=== PATIENT | male | born 1945 | race Caucasian/White ===

== ENCOUNTER 2023-05-19 07:18 | Emergency (ER) | payer MEDICARE, OTHER, SELFPAY ==
[2023-05-19 07:22] VITALS: BP 165/82
--- NOTE | 2023-05-19 08:08 | ED.GENMED ---
History of Present Illness
General
Chief Complaint: Musculo-Skeletal Complaint
Source: patient and spouse
Time Seen by Provider: 05/19/23 07:37
Travel History
Have you had any contact with someone who has COVID-19?: No
Do you have any symptoms of coronavirus? Fever > 100 degrees, chills, cough, shortness of breath, sore throat, loss of taste or smell, muscle aches, or headache?: No
History of Present Illness
History of Present Illness:
78-year-old male with past medical history of atrial fibrillation, hypertension, hyperlipidemia, chronic kidney disease presenting to the emergency department for evaluation of right knee pain that has been going on for an extended period of time,
noting that he had meniscus repair in December with Dr. Jacobo and while the pain improved following the surgery he does note he has had some pain along the medial aspect of the patella since then. He was seen in office in March where he had a
steroid injection performed but states the pain persisted and over the last 2 days has now had difficulty ambulating secondary to the pain prompting him to come to the ER. Patient does have an appointment scheduled with orthopedics within the next
2 weeks, reached out to the office yesterday to try and expedite this appointment but did not hear back from the office. Patient attempted some Tylenol with minimal pain relief. Denies any fevers or infectious symptoms or overlying skin changes.
No new injuries noted to the affected right knee.
Past History
Past History
ED Past Medical History: Arrthythmia, HTN, Hypercholesterolemia, Renal failure and Psychiatric
ED Past Surgical History: Orthopedic and Other
Social History
Tobacco: Non-smoker
Alcohol: Occasional
Drug: None
Personal:
Living: with family
Review of Systems
Review of Systems
All Other Systems: ROS reviewed and negative except as documented in HPI and ROS
Phy Exam
Physical Exam
Physical Exam:
GENERAL: Alert , in no apparent distress
EYE: conjunctiva clear
Head: Normocephalic atraumatic
NECK: Supple,
ENT: mmm.
LUNGS: no acute respiratory distress
NEUROLOGICAL: Alert and oriented
SKIN: Warm and dry, skin intact.
MUSCULOSKELETAL: Right knee: No obvious deformity, erythema, edema, ecchymosis, abrasions or lacerations. There is mild to moderate tenderness along the medial and distal portion of the patella. Range of motion limited secondary to pain. No joint
effusion appreciated. No laxity within the joint. Easily palpable pedal and tibial pulse. Cap refill less than 2 seconds.
PSYCH: Normal and appropriate interaction.
Scores
Heart Failure Risk
Heart Failure Risk Score: Not Applicable
Heart Score for Chest Pain Patients
STEMI patient?: Not applicable
Withdrawal Assessment of Alcohol
Withdrawal Assessment Completed?: Not applicable
Course
Orders/Labs/Results
Orders:
Orders
05/19/23 07:38
CR Knee- Right 4 Or More View* Urgent
Comment:
Reason For Exam: pain, meniscus surgery previously
05/19/23 08:07
Walker [Treatment- Walker] ONCE
Oxycodone/Acetaminophen [Percocet 5/325] 1 tablet PO NOW STA
Vital Signs
Initial and Last Documented VS:
Initial Vital Signs
Temp Pulse Resp BP Pulse Ox
97.4 F 58 18 165/82 97
05/19/23 07:22 05/19/23 07:22 05/19/23 07:22 05/19/23 07:22 05/19/23 07:22
Last Documented Vital Signs
Temp Pulse Resp BP Pulse Ox
97.4 F 60 16 136/74 98
05/19/23 07:22 05/19/23 08:55 05/19/23 08:55 05/19/23 08:55 05/19/23 08:55
MDM/Problems Addressed
Differential Diagnosis Includes:
Osteoarthritis, joint effusion, gout, I do not have concern for septic arthritis given chronicity of the pain as well as lack of physical exam findings, bursitis
MDM/Problems Addressed:
78-year-old male presenting to the emergency department for evaluation of knee pain on the right side since meniscal repair in December, pain gradually worsening, attempted to have a steroid injection with orthopedics in March but this did not
give the patient any relief. At this time I do not suspect any acute emergent pathologies however will obtain an x-ray to evaluate as well as treat patient's pain here with Percocet. Will avoid NSAIDs due to patient being on Coumadin for his A-fib
as well as history of chronic kidney disease. Last INR check was done within the week and patient reports his INR was 3.
*Radiology
Radiology exam reviewed: preliminary read by ED provider (Mild degenerative changes)
*Pulse Oximetry
Patient hypoxic: no
*Critical Care Note
Total Time (30-74mins, 75-104mins- exclusive of procedures): Not Applicable
Data Reviewed
Review of Other/Old Records Reveals: Operative Reports (Based off Dr. Jacobo's operative report patient had noted patellofemoral chondromalacia and it is noted that he may benefit from physical therapy and hyaluronic acid injections in the future)
Patient Management
Escalation/DeEscalation of care consider admission/obs:
While in the emergency department patient received a call from his orthopedic office and has an appointment scheduled for today at 1015. Prescription sent to patient's pharmacy. X-ray results reviewed. He will follow-up today as scheduled.
ED Attending Note
-
Portions of this chart may have been created with voice recognition software.� Occasional wrong word or��sound alike� substitutions may have occurred due to the inherent limitations of voice recognition software.
Discharge Plan
Departure
Patient Disposition: Home (Routine Discharge)
Date of Disposition: 05/19/23
Time of Disposition: 08:42
Patient with high blood pressure during this ER visit?: Yes
Discharge Problem:
Pain in right knee
Instructions: Knee Pain (DC)
Prescriptions:
New
oxycodone-acetaminophen [Percocet] 5-325 mg tablet
1 tab PO Q6HPRN PRN (Reason: pain) Qty: 8 0RF
No Action
allopurinol 100 mg Tablet
100 mg PO DAILY
simvastatin 40 mg Tablet
40 mg PO HS
terazosin 2 mg Capsule
2 mg PO HS
calcitriol 0.5 mcg Capsule
0.5 mcg PO DAILY
warfarin 5 mg Tablet
5 mg PO DAILY
Rx Instructions:
Mon, Wed, Fri
warfarin 5 mg Tablet
5.5 mg PO DAILY
Rx Instructions:
Sun, Tues, Thurs, Sat
flecainide 100 mg Tablet
100 mg PO BID
metoprolol succinate 25 mg Tablet Extended Release 24 Hr
12.5 mg PO DAILY
finasteride 5 mg Tablet
5 mg PO DAILY
escitalopram oxalate 10 mg Tablet
10 mg PO DAILY
multivitamin Tablet
1 tab PO DAILY
loratadine [Claritin] 10 mg Tablet
10 mg PO DAILY
coenzyme Q10 [CoQ-10] 100 mg Capsule
300 mg PO DAILY
cholecalciferol (vitamin D3) [Vitamin D3] 50 mcg (2,000 unit) Tablet
100 mcg PO DAILY
enoxaparin [Lovenox] 120 mg/0.8 mL Syringe
120 mg SC Q12H
Referrals:
Gricelda Kaiser PA [Family Provider] -
Interventions
Interventions:
*Risk Screen - Suicide Last Done: 05/19/23 08:27
*General Assessment Last Done: 05/19/23 08:25
*Neglect/Abuse Screening Last Done: 05/19/23 08:25
ED- Fall Risk Assessment Last Done: 05/19/23 08:28
*ED COVID-19 Vaccine History Last Done: 05/19/23 08:25
*Nursing Disposition Last Done: 05/19/23 08:56
ED-Musculoskeletal Assessment Last Done: 05/19/23 08:27
[2023-05-19] MEDS: PERCOCET 5/325 1 TABLET PO (08:17)
[2023-05-19 08:55] VITALS: BP 136/74
== END 2023-05-19 08:57 | disposition home or self-care (01) ==
LOC: EMR 07:18
PROVIDERS: EMERGENCY PHYSICIAN Emergency Medicine; FAMILY PHYSICIAN Physician Assistant Medical
DX: M25.561 Pain in right knee (principal); I48.91 Unspecified atrial fibrillation; I12.9 Hypertensive chronic kidney disease with stage 1 through stage 4 chronic kidney disease, or unspecified chronic kidney disease; N18.9 Chronic kidney disease, unspecified; E78.00 Pure hypercholesterolemia, unspecified; Z79.01 Long term (current) use of anticoagulants
CPT/HCPCS: 99283; 73564

== ENCOUNTER → 2023-06-30 11:10 | Outpatient (REF) | payer MEDICARE, OTHER, SELFPAY | LOC: RAD 11:10 | PROVIDERS: ATTENDING PHYSICIAN Physician Assistant Medical | DX: M79.89 Other specified soft tissue disorders (principal); M79.604 Pain in right leg | CPT/HCPCS: 93971 ==

== ENCOUNTER 2023-08-28 05:28 | Emergency (ER) | payer MEDICARE, OTHER, SELFPAY ==
[2023-08-28] VITALS (27 sets, daily range): BP systolic 100–158; BP diastolic 63–105
[2023-08-28 05:59] LABS: % Basophils 0.6 % (0-2); % Eosinophils 1.5 % (0-6); % Immature Granulocytes 0.6 % (0-0.5); % Lymphocytes 22.9 % (20.5-51.1); % Monocytes 9.5 % (1.7-9.3); % Neutrophils 64.9 % (42.2-75.2); Absolute Basophils 0.1 10^3/uL (0-0.2); Absolute Eosinophils 0.1 10^3/uL (0-0.7); Absolute Immature Granulocytes 0.1 10^3/uL (0-0.05); Absolute Lymphocytes 2.1 10^3/uL (1.2-3.4); Absolute Monocytes 0.9 10^3/uL (0.1-0.6); Absolute Neutrophils 5.8 10^3/uL (1.4-6.5); Hematocrit 41.5 % (39.0-52.0); Mean Corp Hgb Conc. 33.7 g/dL (33.0-37.0); Mean Corpuscular Hgb 31.7 pg (27.0-31.0); Mean Corpuscular Volume 94.1 fL (80.0-94.0); Mean Platelet Volume 10.4 fL (7.4-10.4); Nucleated Red Blood Cells % 0 % (-); Platelet Count 201 10^3/uL (130-400); Red Blood Cell Count 4.41 10^6/uL (4.70-6.10); Red Cell Dist. Width 14.8 % (11.5-14.5)
--- NOTE | 2023-08-28 06:12 | ED.GENMED ---
History of Present Illness
General
Chief Complaint: Heart Rate Problem
Source: patient
Exam Limitations: none
Time Seen by Provider: 08/28/23 06:03
Travel History
Have you had any contact with someone who has COVID-19?: No
Do you have any symptoms of coronavirus? Fever > 100 degrees, chills, cough, shortness of breath, sore throat, loss of taste or smell, muscle aches, or headache?: No
History of Present Illness
History of Present Illness:
See MDM
Past History
Past History
ED Past Medical History: Arrthythmia, HTN, Hypercholesterolemia, Renal failure and Psychiatric
ED Past Surgical History: Orthopedic and Other
Social History
Tobacco: Non-smoker
Alcohol: Occasional
Drug: None
Personal:
Living: with family
Phy Exam
Physical Exam
Physical Exam:
See MDM
Course
Orders/Labs/Results
Orders:
Orders
08/28/23 05:42
Electrocardiogram (*1) Urgent
Reason for Study: Chest Pain
Cardiac Monitoring- Treatment ONCE
EKG- Treatment ONCE
IV Insert/Care/Rem.- Treatment PRN
08/28/23 05:54
Complete Blood Count/With Diff Urgent
Comprehensive Metabolic Panel Urgent
08/28/23 06:08
PTT Urgent
Prothrombin Time Urgent
Comment: ADD ON
08/28/23 06:11
Add On- LAB Stat
Comments:: pt
Tests Added?: PT
Diltiazem HCl [Cardizem] 20 mg IV NOW STA
08/28/23 07:53
Propofol [Diprivan] 20 ml .ROUTE .STK-MED
08/28/23 08:28
Electrocardiogram (*1) Urgent
Reason for Study: Palpitations
EKG- Treatment ONCE
Abnormal Lab Results
08/28/23 08/28/23
05:54 06:08
RBC 4.41 L 10^6/uL
(4.70-6.10)
MCV 94.1 H fL
(80.0-94.0)
MCH 31.7 H pg
(27.0-31.0)
RDW 14.8 H %
(11.5-14.5)
Abs Immat Gran (auto) 0.1 H 10^3/uL
(0-0.05)
Absolute Monos (auto) 0.9 H 10^3/uL
(0.1-0.6)
Immature Gran % 0.6 H %
(0-0.5)
Monocytes % 9.5 H %
(1.7-9.3)
PT 28.3 H Sec
(11.4-14.6)
APTT 43.3 H Sec
(23.4-35.0)
BUN 35 H mg/dl
(9-20)
Creatinine 1.8 H mg/dL
(0.7-1.3)
Calcium 10.9 H mg/dl
(8.4-10.2)
08/28/23 05:54
08/28/23 05:54
Vital Signs
Initial and Last Documented VS:
Initial Vital Signs
Temp Pulse Resp BP Pulse Ox
97.8 F 120 22 133/100 98
08/28/23 05:31 08/28/23 05:31 08/28/23 05:31 08/28/23 05:31 08/28/23 05:31
Last Documented Vital Signs
Temp Pulse Resp BP Pulse Ox
97.9 F 57 17 114/69 96
08/28/23 08:55 08/28/23 08:55 08/28/23 08:55 08/28/23 08:55 08/28/23 08:55
Procedures
Moderate Sedation
ASA Risk Score: Class II
Chart and allergies reviewed: Yes
Consent for anesthesia obtained: Yes
Time out completed (validating right patient & procedure): Yes
Moderate Sedation Start Time(when first medication is given): 08:12
History of difficult intubation: No
Airway free of obstruction: Yes
Patient has a gag reflex: Yes
Patient is able to open mouth: Yes
Patient has no dentures: Yes
Patient has no loose teeth: Yes
Medication administered by Provider during Moderate Sedation: IV Propofol (mg)
Total dose administered: 150
Time drug administered: :12
Moderate Sedation Procedure End Time: :
Cardioversion
Indication:: Afib
Performed by:: Josh Dsouza DO
Synchronized?: Yes
Energy Used: 150 joules
Number of attempts: 2
Successful?: Yes
Complications: None
ASA Risk Score: Class II
Any reaction or bad outcome to prior sedation/anesthesia?: No history of a reaction
Sedation level to be attained: moderate
Chart and allergies reviewed: Yes
Patient reassessed prior to sedation: Yes
Time out completed at (validating right patient & procedure): 08:07
History of difficult intubation: No
Airway free of obstruction: Yes
Patient has a gag reflex: Yes
Patient is able to open mouth: Yes
Patient has no dentures: Yes
Patient has no loose teeth: Yes
Medication administered by Provider during Moderate Sedation: IV Propofol (mg)
Total dose administered: 150
Time drug administered: :12
Start Time: 08:12
Stop Time: :
MDM/Problems Addressed
Differential Diagnosis Includes:
HPI and MDM Narrative:
78-year-old male presenting with palpitations since 8 PM. Patient has a history of A-fib and is compliant with Coumadin. Patient states his Coumadin level is 3.4. He has been cardioverted before but states he has been in sinus rhythm for several
years. He denies chest pain. Complains of palpitations.
EKG confirms A-fib. Will try IV Cardizem and attempt to chemically cardiovert before consenting for electrical cardioversion
Physical exam
General: Well appearing and non-toxic
HEENT: protecting airway
Neck: appears supple
CV: No evidence of cyanosis. Tachycardic and irregular
Resp: No accessory muscle use
Abd: Non-distended
Extremities: No deformities
Neuro: alert
Psych: Normal affect
Skin: Intact
Problems Addressed including Acute and Chronic Conditions affecting care:
1. A-fib with RVR
Acuity: acute
Prognosis: unstable
Details: Will obtain basic blood work. Patient given IV fluids. Patient given IV Cardizem in attempt to chemically cardiovert
Updates
Patient tolerated moderate sedation and cardioversion well. Patient now in sinus rhythm.
Differential Diagnosis (but not limited to): A-fib, dehydration
Testing considered: Thyroid testing
Drug therapy (if applicable): OTC meds, please see d/c instruction regarding Rx drugs
Amount and/or Complexity of Data Reviewed
Clinical info obtained from: Patient
External data reviewed: N/A
Labs I independently reviewed (but not limited to): INR therapeutic
Radiology: N/A
Pulse Ox: not hypoxic
EKG independently reviewed: A-fib with RVR, left axis, no STEMI
Charge Nurse: A-fib with RVR
Critical Care: N/A
Risk of Complication:
Social Determinants of health: Good social support
Discussed with other providers: N/A
Escalation of Care includes Admit/Obs: After being observed in the Emergency Department, pt stable for discharge.
Occasional wrong word or 'sound a like' substitutions may have occurred due to the inherent limitations of voice recognition software. Read the chart carefully and recognize, using context, where substitutions have occurred.
*Critical Care Note
Total Time (30-74mins, 75-104mins- exclusive of procedures): Not Applicable
ED Attending Note
-
Portions of this chart may have been created with voice recognition software.� Occasional wrong word or��sound alike� substitutions may have occurred due to the inherent limitations of voice recognition software.
Discharge Plan
Departure
Patient Disposition: Home (Routine Discharge)
Date of Disposition: 08/28/23
Time of Disposition: 09:07
Patient with high blood pressure during this ER visit?: No
Discharge Problem:
A-fib
Instructions: Atrial Fibrillation (DC), MODERATE SEDATION ADULT
Prescriptions:
No Action
allopurinol 100 mg Tablet
100 mg PO DAILY
simvastatin 40 mg Tablet
40 mg PO HS
terazosin 2 mg Capsule
2 mg PO HS
calcitriol 0.5 mcg Capsule
0.5 mcg PO DAILY
warfarin 5 mg Tablet
5 mg PO DAILY
Rx Instructions:
Mon, Wed, Fri
warfarin 5 mg Tablet
5.5 mg PO DAILY
Rx Instructions:
Sun, Tues, Thurs, Sat
flecainide 100 mg Tablet
100 mg PO BID
metoprolol succinate 25 mg Tablet Extended Release 24 Hr
12.5 mg PO DAILY
finasteride 5 mg Tablet
5 mg PO DAILY
escitalopram oxalate 10 mg Tablet
10 mg PO DAILY
multivitamin Tablet
1 tab PO DAILY
loratadine [Claritin] 10 mg Tablet
10 mg PO DAILY
coenzyme Q10 [CoQ-10] 100 mg Capsule
300 mg PO DAILY
cholecalciferol (vitamin D3) [Vitamin D3] 50 mcg (2,000 unit) Tablet
100 mcg PO DAILY
enoxaparin [Lovenox] 120 mg/0.8 mL Syringe
120 mg SC Q12H
oxycodone-acetaminophen [Percocet] 5-325 mg tablet
1 tab PO Q6HPRN PRN (Reason: pain) Qty: 8 0RF
Referrals:
Gricelda Kaiser PA [Family Provider] -
Activity Restrictions/Additional Instructions:
Please return for any worsening symptoms.
You may return at any time if you have further concerns.
Please follow up with your doctor at the first available appointment, preferably this week.
Please make an appointment with your director of accounting.
Thank you for choosing [facility].
Interventions
Interventions:
*Risk Screen - Suicide Last Done: 08/28/23 05:31
*General Assessment Last Done: 08/28/23 05:31
*Neglect/Abuse Screening Last Done: 08/28/23 05:31
ED- Fall Risk Assessment Last Done: 08/28/23 05:31
*ED COVID-19 Vaccine History Last Done: 08/28/23 05:31
ED- Cardiac Assessment Last Done: 08/28/23 06:01
ED- Pulmonary Assessment Last Done: 08/28/23 06:01
Discharge Date and Time
Print Language: ITALIAN
[2023-08-28] MEDS: CARDIZEM 20 MG IV (06:15)
[2023-08-28 06:17] LABS: ALT (SGPT) 29 U/L (0-50); AST (SGOT) 39 U/L (17-59); Alkaline Phosphatase 54 U/L (38-126); Blood Urea Nitrogen 35 mg/dl (9-20); Calcium 10.9 mg/dl (8.4-10.2); Carbon Dioxide 27 mmol/L (22-30); Chloride 106 mmol/L (98-107); Glucose 98 mg/dl (70-99); Potassium 4.3 mmol/L (3.5-5.1); Sodium 138 mmol/L (135-145); Total Bilirubin 0.7 mg/dl (0.2-1.3); Total Protein 6.5 g/dl (6.3-8.2); eGFR 38.53
[2023-08-28 06:34] LABS: INR 2.62; PT 28.3 Sec (11.4-14.6)
[2023-08-28 06:35] LABS: APTT 43.3 Sec (23.4-35.0)
== END 2023-08-28 09:35 | disposition home or self-care (01) ==
LOC: EMR 05:28
PROVIDERS: Student in an Organized Health Care Education/Training Program; EMERGENCY PHYSICIAN Student in an Organized Health Care Education/Training Program; FAMILY PHYSICIAN Physician Assistant Medical
DX: I48.91 Unspecified atrial fibrillation (principal); Z79.01 Long term (current) use of anticoagulants; E78.00 Pure hypercholesterolemia, unspecified; I10 Essential (primary) hypertension
CPT/HCPCS: 99284; 96374; 92960; 80053; 85025; 85610; 85730; 93005

== ENCOUNTER 2024-01-15 06:06 | Day surgery (SDC) | payer MEDICARE, OTHER, SELFPAY ==
[2024-01-05 10:25] VITALS: BMI 37.6
[2024-01-15] VITALS (12 sets, daily range): BP systolic 128–154; BP diastolic 68–109; BMI 38.0
[2024-01-15 07:14] LABS: INR 2.27; PT 25.3 Sec (11.4-14.6)
[2024-01-15 09:02] LABS: ACT-LR - POC 377 Seconds (116-155)
[2024-01-15 09:27] LABS: ACT-LR - POC 351 Seconds (116-155)
[2024-01-15 09:48] LABS: ACT-LR - POC > 397 Seconds (116-155)
[2024-01-15 10:20] LABS: ACT-LR - POC 197 Seconds (116-155)
[2024-01-15 11:16] LABS: ACT-LR - POC > 397 Seconds (116-155)
[2024-01-15 11:16] LABS: ACT-LR - POC > 397 Seconds (116-155)
[2024-01-15] MEDS: PROSCAR 5 MG PO (12:02)
--- NOTE | 2024-01-15 13:04 | ITS.CL.ABL ---
Dowel Machine Operator - Ablation
Ablation
Procedure Report:
Primary Manager Of Drilling: Afshin Blackwood MD
Procedure Date: 01/15/2024
Patient History:
Patient is a pleasant 79-year-old male with a past medical history significant for hypertension, hyperlipidemia, history of PE, hyperlipidemia, BPH, CKD 3B, paroxysmal symptomatic atrial fibrillation.
See H&P for complete details.
Indication:
Symptomatic paroxysmal atrial fibrillation
Recurrence despite antiarrhythmic medical therapy
Arrhythmia Specific History:
Prior Medical Therapies for Rate and Rhythm Control:
X Beta-song
[ ] Calcium channel-song
[ ] Amiodarone
[ ] Dronederone
[ ] Sotalol
X Flecainide
[ ] Dofetilide
X Options limited by bradycardia
X Options limited by comorbid renal disease
Prior Procedural Therapies for AF/AFL:
X Cardioversion
[ ] Pulmonary Vein Isolation
[ ] Posterior Wall Isolation
[ ] Additional lines (Specify)
[ ] Surgical Vila-MAZE or PVI (Specify)
Procedure Performed:
X AF ablation procedure (70580) -- includes LA/CS pacing, trans-septal, 3D mapping, + ICE
[ ] +IV drug (20044)
[ ] +Other Arrhythmia (48273)
[ ] +Other AF Line/ablation (96457)
Risks and expected recovery has been explained in detail. Alternative options have been explored, and in a shared-decision making fashion we have decided that this was the most appropriate procedure.
Method
NPO status confirmed. Grounding pad applied. Defibrillator pads applied. Continuous surface ECG, pulse oximetry, and blood pressure were monitored. Procedure was performed under general anesthesia, with anesthesia services.
Both groins were clipped, prepped with Chloraprep, and draped in sterile fashion. Time out was called. Local anesthesia administered with bupivacaine. The right and left femoral veins were accessed for catheter placement, using ultrasound guidance,
micro-puncture needle/wire, and modified seldinger technique. 3 sheaths were placed. The following catheters were used:
[ ] Tacticath SE (D/F Curve) ablation catheter
X Viewflex 9Fr ICE catheter
X Inquiry decapolar 6Fr diagnostic catheter
[ ] CRD Hex 6Fr
[ ] Arctic Front Advance Cryoballoon ([ ]28mm[ ]23mm)
[ ] Achieve Advance mapping catheter ([ ]15mm[ ]20mm)
X FlexCath Contour 10 Fr with PulseSelect PFA Catheter
X Advisor HD Grid Mapping Catheter, SE
[ ] Acuson AcuNav 8 Fr ICE catheter
[ ]Other: [ ]
Intracardiac ultrasound (ICE) was carefully advanced into the right atrium to guide sheath placement over a J-wire, catheter placement, guide trans-septal puncture, identify potential complications, identify anatomic structures and ensure proper
contact between ablation catheter and tissue.
Heparin was given prior to trans-septal puncture. Heparin was given to achieve and maintain a target ACT of 300-400 seconds throughout the procedure.
Trans-septal access was performed under ICE guidance. The trans-septal puncture was performed with a SafeSept wire through a Brockenbrough needle assembly through the steerable sheath. The wire was visualized as it entered the LSPV and system
advanced under ICE guidance and fluoroscopy into the LA. The Brockenbrough needle assembly, SafeSept wire and sheath dilator were removed under negative pressure. LA pressure was measured and recorded.
ICE and 3D mapping was performed to identify relevant cardiac structures. A careful 3D map was created to assess for regions of low-voltage and abnormal electrogram signals using HD grid mapping catheter and PulseSelect catheter. Additional mapping
was performed as outlined below.
Prior to ablation, glycopyrrolate was provided. PulseSelect catheter was advanced over J-wire to the ostium of each vein. Pulmonary vein isolation was performed with ostial and antral lesions in a circumferential manner. Contact was visualized via
EAM, ICE, fluoroscopy, and EGM signals. Following completion of ablation lesions, a post-ablation voltage/activation map was performed in sinus rhythm. Evidence of reconnection was demonstrated in the right superior pulmonary vein. Ablation once
more performed in this area. Mapping in sinus rhythm demonstrated entrance and exit block were confirmed for each vein. During baseline electrophysiology study post procedure, patient was noted to go in atrial fibrillation which was variable and
amorphous with fluctuating cycle length. Sinus rhythm was restored with 200 J synchronized cardioversion. No further evidence of atrial arrhythmia or sustained atrial arrhythmias.
Catheter and sheath were removed from the left atrium and post-ablation intracardiac echo evaluation was consistent with pre-ablation with no changes and no pericardial effusion and there is no left atrial thrombus or left ventricle thrombus seen.
Electrophysiology study was performed. Hemostasis was obtained with Vascade for each sheath and with manual pressure. Protamine was used for reversal.
Estimated Blood Loss
5 mL
Complications
None
Fluoroscopy: 3.7 minutes; 30.72 mGy; DAP 3.60
Baseline Intervals:
Rhythm: SR
VT: 177 ms
QRS: 131 ms
QT: 457 ms
QTc: 440 ms
A-A: 1080 ms
R-R: 1080 ms
Post-Procedure Intervals:
VT: 210 ms
QRS: 136 ms
QT: 507 ms
QTc: 471 ms
A-A: 1160 ms
R-R: 1160 ms
AVWB: 450 ms
AERP: 600/330 ms
Recommendations
- Bedrest with straight-leg precautions as ordered
- Anticipate same day discharge if patient meeting clinical metrics
- Resume home medications as indicated
- Ok to resume anticoagulation tonight if patient and groin sites stable
- PPI daily for 30 days
- Plan for follow-up in office as scheduled. Recommend continuation of flecainide following procedure and likely discontinuation at 3 month ale if remaining in SR.
Larry Elizabeth DO
Clinical Cardiac Breeder Hen Service Technician
cc: Gricelda Kaiser, Afshin Blackwood MD
--- NOTE | 2024-01-15 13:24 | W.PN.UPDATE ---
Update Note
Progress Note Update
Pt seen post PFA. Right groin site with vascade closure, no ht/bleeding, non tender. OOB ambulating, urinating without difficulty. Post EKG NSR 60s w/RBBB as before, no acute changes. Resume warfarin at usual time/dosing schedule. Followup with
[facility] as scheduled. Home today if groin site/tele remain stable.
--- NOTE | 2024-01-15 13:29 | PTCARENOTE ---
ambulated 1 loop around department.
== END 2024-01-15 13:45 | disposition home or self-care (01) ==
LOC: CATH 06:06
PROVIDERS: ATTENDING PHYSICIAN Internal Medicine Cardiovascular Disease; FAMILY PHYSICIAN Physician Assistant Medical; OTHER PHYSICIAN Internal Medicine Cardiovascular Disease
DX: I48.0 Paroxysmal atrial fibrillation (principal); N18.32 Chronic kidney disease, stage 3b; I12.9 Hypertensive chronic kidney disease with stage 1 through stage 4 chronic kidney disease, or unspecified chronic kidney disease; E78.5 Hyperlipidemia, unspecified; N40.0 Benign prostatic hyperplasia without lower urinary tract symptoms; Z86.711 Personal history of pulmonary embolism; Z79.01 Long term (current) use of anticoagulants; Z79.52 Long term (current) use of systemic steroids; Z79.899 Other long term (current) drug therapy
CPT/HCPCS: C1732; C1730; C1733; C1769; C1894; 85347; 85610; 86900; 86901; 93005; 93656; C1760

== ENCOUNTER 2024-01-18 13:50 | Emergency (ER) | payer MEDICARE, OTHER, SELFPAY ==
[2024-01-18 13:53] VITALS: BP 184/98
--- NOTE | 2024-01-18 14:32 | ED.GENMED ---
History of Present Illness
General
Chief Complaint: Abdominal Symptoms
Source: patient
Exam Limitations: none
Time Seen by Provider: 01/18/24 14:20
Nursing documentation reviewed up to this point in time: agreed with
History of Present Illness
History of Present Illness:
79-year-old male with a past medical history of hypertension, hyperlipidemia, atrial fibrillation who presents to the emergency room for constipation. Patient had a cardiac ablation on Thursday; he says since receiving the anesthesia he has had
constipation and has not had a bowel movement since the procedure. He is having some increasing lower abdominal pressure and today was having some difficulty urinating which he suspects is from constipation. He says that he has been taking
Dulcolax 3 times daily since the procedure and yesterday was using Dulcolax suppositories as well without result. He tried Fleet enema unsuccessfully. Came to the ER to be evaluated. He denies any nausea or vomiting. While he does have abdominal
pressure/bloating he denies abdominal pain. He denies any other complaints. Only surgical history in the abdomen was a hernia repair as a child.
Past History
Past History
ED Past Medical History: Arrthythmia, HTN, Hypercholesterolemia, Renal failure and Psychiatric
ED Past Surgical History: Orthopedic and Other
Social History
Tobacco: Non-smoker
Alcohol: Occasional
Drug: None
Personal:
Living: with family
Review of Systems
Review of Systems
All Other Systems: ROS reviewed and negative except as documented in HPI and ROS
Constitutional: Denies fever
Respiratory: Denies trouble breathing
Cardiac: Denies chest pain
ABD/GI: Reports constipated; Denies abdominal pain, nausea or vomiting
: Reports difficulty voiding; Denies dysuria or flank pain
Musculoskeletal: Denies neck pain or back pain
Neurological: Denies dizzy or headache
Phy Exam
Physical Exam
Physical Exam:
General: Awake, alert; no acute distress
Head: Normocephalic, atraumatic
Eyes: Conjunctiva normal
Throat: Airway intact
Neck: Trachea midline, supple without meningismus
Lungs: Breathing comfortably no distress, no accessory muscle use, no cyanosis
Heart: Regular rate
Abd: Soft, mildly distended, minimally tender lower abdomen
Neuro: No gross deficits
Skin: no rash
Extremities: Warm and well-perfused
Scores
Heart Failure Risk
Heart Failure Risk Score: Not Applicable
Heart Score for Chest Pain Patients
STEMI patient?: Not applicable
Withdrawal Assessment of Alcohol
Withdrawal Assessment Completed?: Not applicable
Course
Orders/Labs/Results
Orders:
Orders
01/18/24 14:31
Obstruct Series W/PA Chest [CR Obstruct Series W/pa Chest] Urgent
Comment:
Reason For Exam: constipation
Vital Signs
Initial and Last Documented VS:
Initial Vital Signs
Temp Pulse Resp BP Pulse Ox
36.5 C 73 18 184/98 97
01/18/24 13:53 01/18/24 13:53 01/18/24 13:53 01/18/24 13:53 01/18/24 13:53
Last Documented Vital Signs
Temp Pulse Resp BP Pulse Ox
36.8 C 74 16 184/98 98
01/18/24 13:53 01/18/24 13:53 01/18/24 14:00 01/18/24 13:53 01/18/24 13:53
MDM/Problems Addressed
Differential Diagnosis Includes:
Constipation, fecal impaction, ileus, bowel obstruction
MDM/Problems Addressed:
79-year-old male presents with constipation for the past 3 days since cardiac ablation; refractory to [id number] Dulcolax, suppositories, Fleet enema. Today also having some trouble emptying his bladder and he is concerned for severe
constipation/impaction. Hypertensive otherwise normal vitals. Exam as above. Will check x-ray to evaluate for signs of obstruction. Reassess after the above�if no obstruction plan to likely disimpact at bedside.
X-ray reviewed�no signs of obstruction but large stool burden consistent with constipation. Upon reentering the room to speak with him after x-ray patient tells me that he just went to the bathroom and had a massive bowel movement and was able to
completely empty his bladder subsequently. He says that he feels much better. Stable for discharge, will give him some magnesium citrate to take today as he did have large stool burden on x-ray advised to continue with Dulcolax and add some Colace
for the next few days and then titrate back as constipation improves. He is comfortable with this plan. Spoke about return precautions all questions answered.
Acute Exacerbation and/or Progression of Chronic Illness:
Acutely hypertensive with no signs or symptoms of hypertensive emergency�no indication for emergent antihypertensive treatment at present
Acute Exacerbation and/or Progression of Chronic Illness: HTN
*Radiology
Radiology exam reviewed: preliminary read by ED provider and radiology read reviewed
*Pulse Oximetry
Patient hypoxic: no
*Critical Care Note
Total Time (30-74mins, 75-104mins- exclusive of procedures): Not Applicable
Data Reviewed
Source: patient and records
ED Attending Note
-
Portions of this chart may have been created with voice recognition software.� Occasional wrong word or��sound alike� substitutions may have occurred due to the inherent limitations of voice recognition software.
Discharge Plan
Departure
Patient Disposition: Home (Routine Discharge)
Date of Disposition: 01/18/24
Time of Disposition: 15:04
Patient with high blood pressure during this ER visit?: Yes
Discharge Problem:
Acute constipation
Instructions: Constipation, Adult (DC)
Prescriptions:
New
magnesium citrate Solution
300 ml PO ONCE Qty: 296 0RF
No Action
allopurinol 100 mg Tablet
100 mg PO DAILY
simvastatin 40 mg Tablet
40 mg PO HS
calcitriol 0.5 mcg Capsule
0.5 mcg PO DAILY
warfarin 5 mg Tablet
5 mg PO MOWEFR
warfarin 5 mg Tablet
5.5 mg PO SUTUTHSA
flecainide 100 mg Tablet
100 mg PO BID
metoprolol succinate 25 mg Tablet Extended Release 24 Hr
12.5 mg PO DAILY
finasteride 5 mg Tablet
5 mg PO DAILY
escitalopram oxalate 10 mg Tablet
10 mg PO DAILY
multivitamin Tablet
1 tab PO DAILY
coenzyme Q10 [CoQ-10] 100 mg Capsule
300 mg PO DAILY
cholecalciferol (vitamin D3) [Vitamin D3] 50 mcg (2,000 unit) Tablet
100 mcg PO DAILY
doxazosin 2 mg Tablet
2 mg PO DAILY
levothyroxine 50 mcg Tablet
50 mcg PO DAILY
Referrals:
Gricelda Kaiser PA [Family Provider] - Call in 1-3 days for appt
Activity Restrictions/Additional Instructions:
Thank you for visiting the Emergency Department at [facility] [place].
1. Please schedule a follow up appointment as directed. Call first thing tomorrow morning to make an appointment.
2. If indicated, please take your medications as instructed and indicated on discharge paperwork.
3. If any of your symptoms do not improve, or persist, or become more severe within 6-12 hours, please return to the emergency department for further care.
4. Please return to the emergency department if you develop a headache, neck pain/stiffness, fever greater than 100.4F, chest pain, shortness of breath, persistent nausea, vomiting, slurred speech, difficulty walking, numbness/tingling, weakness,
signs of infection or any other symptoms that are worrisome to you.
Please call [phone] if you have any questions.
Interventions
Interventions:
*Risk Screen - Suicide Last Done: 01/18/24 14:00
*Neglect/Abuse Screening Last Done: 01/18/24 14:00
*ED COVID-19 Vaccine History Last Done: 01/18/24 14:28
[facility]-Dzqfme-Xtetwuhozk Assessment Last Done: 01/18/24 14:27
Discharge Date and Time
Print Language: IVORIAN
[2024-01-18] MEDS: CITROMA 300 ML PO (15:08)
[2024-01-18 15:11] VITALS: BP 169/87
== END 2024-01-18 15:12 | disposition home or self-care (01) ==
LOC: EMR 13:50
PROVIDERS: EMERGENCY PHYSICIAN Emergency Medicine; FAMILY PHYSICIAN Physician Assistant Medical
DX: K59.00 Constipation, unspecified (principal); I10 Essential (primary) hypertension; E78.00 Pure hypercholesterolemia, unspecified; I48.91 Unspecified atrial fibrillation
CPT/HCPCS: 99283; 74022

== ENCOUNTER → 2024-09-01 07:10 | Outpatient (REF) | payer MEDICARE, OTHER, SELFPAY | LOC: HWRCS 07:10 | PROVIDERS: ATTENDING PHYSICIAN Internal Medicine Cardiovascular Disease; FAMILY PHYSICIAN Physician Assistant Medical | DX: I48.0 Paroxysmal atrial fibrillation (principal) | CPT/HCPCS: 93306 ==

== ENCOUNTER → 2024-09-08 07:11 | Outpatient (REF) | payer MEDICARE, OTHER, SELFPAY | LOC: HWRCS 07:11 | PROVIDERS: ATTENDING PHYSICIAN Internal Medicine Cardiovascular Disease; FAMILY PHYSICIAN Physician Assistant Medical | DX: I48.0 Paroxysmal atrial fibrillation (principal) | CPT/HCPCS: 78452; 93017; A9500; J2785 ==

== ENCOUNTER → 2025-03-07 10:54 | Outpatient (REF) | payer MEDICARE, OTHER, SELFPAY | LOC: HWRAD 10:54 | PROVIDERS: ATTENDING PHYSICIAN Physician Assistant Medical | DX: M54.41 Lumbago with sciatica, right side (principal); M54.42 Lumbago with sciatica, left side; W19.XXXA Unspecified fall, initial encounter | CPT/HCPCS: 72110; 73502 ==